=== PATIENT | female | born 1995 | race Two or more races ===

== ENCOUNTER 2019-11-15 15:02 | Emergency (ER) | payer SELFPAY ==
[~2019-11-15] VITALS: Ht 152.4 cm; Wt 48.4 kg
[2019-11-15] MEDS ORDERED: AZIT250T PO (19:13)
--- NOTE | 2019-11-15 19:13 | PHYS DOC ---
Past Medical History Past Medical History: No Pertinent History Past Surgical History: No Surgical History Smoking Status: Never Smoker Alcohol Use: None General Adult EDM: Chief Complaint: SORE THROAT HPI: HPI: Patient is a 23 year old female who presents with complaints of a sore throat for the past 4 days, denies cough or shortness of breath denies fever or chills, patient states that she does not own a thermometer at home and has not taken her temperature but feels as if she might have had a temperature but is not sure. Patient denies visual changes, nasal congestion, cough or shortness of breath. Patient denies any chest pains, or swelling of her extremities. Patient denies any abdominal pain, nausea, vomiting, diarrhea, or constipation. Patient denies any problems urinating. Patient denies any back pain, or pain in her joints. Denies any rashes on her skin. Patient denies any headaches, focal weaknesses, sensory changes, swelling of her glands. Patient denies any recent life changing events, depressions, anxieties, homicidal or suicidal ideations. Patient is a non-smoker. Review of Systems: Review of Systems: Constitutional: Denies fever or chills. Eyes: Denies change in visual acuity. HENT: Denies nasal congestion, complains of sore throat. Respiratory: Denies cough or shortness of breath. Cardiovascular: Denies chest pain or edema. GI: Denies abdominal pain, nausea, vomiting, bloody stools or diarrhea. : Denies dysuria. Musculoskeletal: Denies back pain or joint pain. Integument: Denies rash. Neurologic: Denies headache, focal weakness or sensory changes. Lymphatic: Denies swollen glands. Psychiatric: Denies depression or anxiety. Heart Score: Risk Factors: Risk Factors: DM, Current or recent (<one month) smoker, HTN, HLP, family history of CAD, obesity. Risk Scores: Score 0 - 3: 2.5% MACE over next 6 weeks - Discharge Home Score 4 - 6: 20.3% MACE over next 6 weeks - Admit for Clinical Observation Score 7 - 10: 72.7% MACE over next 6 weeks - Early Invasive Strategies Family History: Family History: Patient denies significant family history related to this visit. Allergies: Allergies: Allergies Coded Allergies Type Severity Reaction Last Updated Verified No Known Drug Allergies 11/15/19 No Physical Exam: PE: Constitutional: Well developed, well nourished, no acute distress, non-toxic appearance. HENT: Normocephalic, atraumatic, bilateral external ears normal, oropharynx moist reddened slightly edematous with oral pharyngeal cobblestoning, the tonsils are not edematous or swollen, no postnasal drip, no oral exudates, nose normal. Eyes: PERRLA, EOMI, conjunctiva normal, no discharge. Neck: Normal range of motion, no tenderness, supple, no stridor. Cardiovascular:Heart rate regular rhythm, no murmur, heart sounds S1-S2, no abnormalities per auscultation. Lungs & Thorax: Bilateral breath sounds clear to auscultation all lung gibson. Abdomen: Bowel sounds normal all 4 quadrants, soft, no tenderness, no masses, no pulsatile masses. Skin: Warm, dry, no erythema, no rash. Back: No tenderness, no CVA tenderness. Extremities: No tenderness, no cyanosis, no clubbing, ROM intact, no edema. Neurologic: Alert and oriented X 3, normal motor function, normal sensory function, no focal deficits noted. Psychologic: Affect normal, judgement normal, mood normal. Current Patient Data: Vital Signs: Vital Signs Date Time Temp Pulse Resp B/P (MAP) Pulse Ox O2 Delivery O2 Flow Rate FiO2 11/15/19 16:20 98.7 117 24 122/97 (105) 97 Room Air 98.7 EKG: EKG: [] Radiology/Procedures: Radiology/Procedures: [] Course & Med Decision Making: Course & Med Decision Making Pertinent Labs and Imaging studies reviewed. (See chart for details) Patient arrived to emergency department with her 3 younger siblings all complaining of sore throats the patient's mother was in the room and was concerned that she wanted everybody tested for the COVID-19. Because of clinical findings concerning for acute pharyngitis, a strep a rapid test was ordered along with COVID-19 testing in the emergency department. The rapid strep a was negative, but related to clinical findings patient will be started on a Z-Scotty at home. Discussed findings with patient and need to take antibiotics who was amenable to this plan. Discussed return to the emergency department precautions and concerns, patient had no further questions or concerns, patient discharged home. Regis Disclaimer: Regis Disclaimer: This electronic medical record was generated, in whole or in part, using a voice recognition dictation system. Departure Departure Impression: Primary Impression: Pharyngitis, acute Qualified Codes: J02.9 - Acute pharyngitis, unspecified Additional Impression: Person under investigation for COVID-19 Disposition: 01 HOME, SELF-CARE Condition: GOOD Referrals: NO PCP (PCP) Patient Instructions: Viral and Bacterial Pharyngitis Additional Instructions: Definicin Se le realiz la prueba de deteccin del COVID-19 o se le diagnostic dicha enfermedad. Es silvina infeccin ocasionada por un nuevo tipo de coronavirus. En la mayora de los casos, el COVID-19 provoca sntomas similares a los del resfriado. En algunas personas, puede ocasionar sntomas ms graves, long problemas respiratorios. No existe un tratamiento para el virus COVID-19. El cuerpo elimina la infeccin con el tiempo. El cuidado personal ayuda a aliviar el malestar. Pasos que debe seguir 1. Cuidados personales Descanse cuando sea necesario. Los hbitos saludables pueden ayudarlo a sentirse mejor. Algunas medidas para lograr cambios incluyen lo siguiente: - Elija alimentos saludables, long frutas y verduras. Lena abundante cantidad de agua omid todo el da. - Duerma ameena por la noche. - Si fuma, intente no hacerlo. [place] ayudar a mejorar la respiracin. - Evite el alcohol. 2. Mantenga sanos a los dems El virus puede contagiarse a otras personas. Cada vez que estornuda o tose, se liberan gotitas. Las gotitas pueden entrar en la boca, la nariz o los ojos de las personas que se encuentran cerca de usted y ocasionar la infeccin. Para reducir las probabilidades de contagiar el virus COVID-19 a otros, tenga en cuenta lo siguiente: - Qudese en casa el tiempo que el mdico se lo indique. Es posible que deba quedarse en casa hasta que la enfermedad desaparezca. Salga nicamente para recibir atencin mdica o en sergey de urgencia. - Evite las reas pblicas, los eventos o el transporte pblico. No reanude las actividades laborales o escolares hasta que el mdico lo autorice. - Llame previamente si necesita asistir a un centro mdico. Avise que es posible que haya contrado COVID-19. [place] ayudar a que le indiquen adonde debe dirigirse. Darnell bin pueden pedirle que use silvina mscara facial cuando vaya al consultorio. Si llama a los servicios de asistencia mdica de urgencias, avseles que es posible que haya contrado COVID-19. Mientras est en casa: - Evite el contacto directo con otras personas. Mantngase a silvina distancia aproximada de 2 metros. Si es posible, pasen la mayor parte del tiempo en mendoza separadas. - Use silvina mscara facial si estar en contacto directo con otras personas, por ejemplo, si compartir silvina habitacin o un vehculo. - Pida a alguien que limpie las superficies comunes de la casa. Limpie picaportes, mesadas y lavamanos con limpiadores domsticos todos los corral. - Al toser o estornudar, cbrase con un pauelo de papel. Despus de usarlo, deschelo de inmediato. Si no tiene un pauelo de papel, tosa o estornude en el pliegue del codo. - Lvese las shania con frecuencia. Lvese las shania despus de estornudar o toser. Lvese con agua y jabn omid, al menos, 20 segundos. Si no dispone de agua y jabn, use un limpiador de shania a base de alcohol. - No cocine para otros. Evite compartir objetos personales, long tenedores, cucharas o cepillos de dientes. - Mientras est enfermo, evite el contacto directo con las mascotas. No hay indicios de si el virus se transmite a las mascotas. Esta es silvina medida de seguridad que debe tenerse en cuenta hasta que se sepa ms acerca de ousmane virus. El aislamiento puede ser frustrante. La interaccin social puede ayudar. Mantngase en contacto con amigos y familiares por telfono u otros medios tecnolgicos. Puede interactuar con otras personas en el hogar, olga mantenga silvina distancia guerrero de aproxi madamente 2 metros. Seguimiento Las pruebas para confirmar la presencia del COVID-19 pueden demorar algunos corral. Es posible que deba seguir los pasos mencionados anteriormente hasta que estn los resultados de las pruebas. Lo llamarn del consultorio mdico para saber si peters habido algn cambio en gomez luz. Tambin le avisarn cuando pueda volver a estar cerca de otras personas. Problemas a los que debe estar atento Comunquese con el mdico si no se recupera segn lo previsto o si tiene problemas long los siguientes: - Dificultad para respirar - Dolor de pecho - Empeoramiento de los sntomas Si joey que tiene silvina urgencia, llame a los servicios de asistencia mdica de urgencias de inmediato. As taken from [employer] Azithromycin (ZITHROMAX) 250 Mg Tablet 1 PKG PO UD, #6 TAB 0 Refills Prov: JOSEE SCHNEIDER BUNDLE CLERK 11/15/19 Justicifation of Admission Dx: Justifications for Admission: Justification of Admission Dx: N/A JOSEE SCHNEIDER APRN Nov 15, 2019 19:13
[2019-11-15 19:35] VITALS: BP 124/71
--- NOTE | 2019-11-18 10:30 | NUR ---
IP: Informed pt of negative COVID test. Pt verbalized understanding. No questions.
== END 2019-11-15 19:45 | disposition home or self-care (01) ==
LOC: ER 15:02
DX: J02.9 Acute pharyngitis, unspecified (principal); Z20.818 Contact with and (suspected) exposure to other bacterial communicable diseases
CPT/HCPCS: 87070; 87880; 99283; U0003